=== PATIENT | female | born 1935 | race Asian ===

== ENCOUNTER 2018-05-05 10:39 | Inpatient (IN) | payer MEDICARE, OTHER ==
[2018-05-05 11:56] LABS: WHITE BLOOD COUNT 25.5 10^3/ul (4.8-10.8)
[2018-05-05 11:56] LABS: ABNORMAL IP MESSAGE 1; HEMATOCRIT 34.5 % (37.0-47.0); HEMOGLOBIN 11.5 g/dl (12.0-16.0); MEAN CORPUSCULAR HEMOGLOBIN 29.4 pg (29.0-33.0); MEAN CORPUSCULAR HGB CONC 33.3 g/dl (32.0-37.0); MEAN CORPUSCULAR VOLUME 88.2 fl (82.0-101.0); MEAN PLATELET VOLUME 8.5 fl (7.4-10.4); PLATELET COUNT 253 10^3/UL (140-415); RED BLOOD COUNT 3.91 10^6/ul (4.20-5.40); RED CELL DISTRIBUTION WIDTH 13.2 % (11.5-14.5)
[2018-05-05 11:57] LABS: ADD MAN DIFF? YES; POSITIVE DIFF @See below
[2018-05-05] MEDS: SOD CHLORIDE 0.9% 1,000 ML IV ×3 (12:21→17:23)
[2018-05-05] MEDS: CEFTRIAXONE 1 GM/50 ML (PMX) 50 ML IVPB (12:21)
[2018-05-05 12:26] LABS: ALANINE AMINOTRANSFERASE 22 IU/L (13-69); ALBUMIN 3.4 g/dl (3.3-4.9); ALBUMIN/GLOBULIN RATIO 1.09; ALKALINE PHOSPHATASE 170 IU/L (42-121); ANION GAP 9 (5-13); ASPARTATE AMINO TRANSFERASE 24 IU/L (15-46); BILIRUBIN,INDIRECT 0.1 mg/dl (0-1.1); BILIRUBIN,TOTAL 0.1 mg/dl (0.2-1.3); BLOOD UREA NITROGEN 24 mg/dl (7-20); CALCIUM 8.6 mg/dl (8.4-10.2); CARBON DIOXIDE 24 mmol/L (21-31); CHLORIDE 89 mmol/L (97-110); CREATININE 1.14 mg/dl (0.44-1.00); GLUCOSE 114 mg/dl (70-220); SODIUM 122 mmol/L (135-144); TOTAL PROTEIN 6.5 g/dl (6.1-8.1)
[2018-05-05 12:32] LABS: POTASSIUM 5.8 mmol/L (3.5-5.1)
[2018-05-05] MEDS: AZITHROMYCIN 500MG/NS (PMX) 250 ML IV (12:34)
[2018-05-05 12:38] LABS: TROPONIN-I < 0.012 ng/ml (0.000-0.120)
[2018-05-05 12:57] LABS: BAND NEUTROPHILS #M 3.3 10^3/ul (0.0-0.6); BAND NEUTROPHILS % (M) 13 % (0-4); BURR CELLS 1+ (0-0); LYMPHOCYTES #M 0.5 10^3/ul (0.8-2.9); LYMPHOCYTES % (M) 2 % (15-51); MONOCYTES % (M) 4 % (0-11); PLATELET ESTIMATE NORMAL; POIKILOCYTOSIS 1+ (0-0); POLYCHROMASIA 1+ (0-0); SEG NEUT #M 21.5 10^3/ul (1.6-7.5); SEGMENTED NEUTROPHILS (M) % 81 % (39-77); SMUDGE%M 4 % (0-0)
[2018-05-05 14:10] LABS: ADD UMIC YES; UR ASCORBIC ACID NEGATIVE (NEGATIVE); UR BACTERIA FEW /HPF (NONE SEEN); UR BILIRUBIN (Dip) NEGATIVE (NEGATIVE); UR BLOOD (Dip) NEGATIVE (NEGATIVE); UR CLARITY TURBID (CLEAR); UR COLOR AMBER (YELLOW); UR GLUCOSE (Dip) NEGATIVE (NEGATIVE); UR KETONES (Dip) NEGATIVE (NEGATIVE); UR LEUKOCYTE ESTERASE (Dip) 3+ Leu/ul (NEGATIVE); UR MUCUS FEW /HPF (NONE SEEN); UR NITRITE (Dip) NEGATIVE (NEGATIVE); UR NONSQUAMOUS EPITHELIAL CELL 15 /HPF (NONE SEEN); UR RBC 40 /HPF (0-5); UR SPECIFIC GRAVITY (Dip) 1.017 (1.003-1.030); UR SQUAMOUS EPITHELIAL CELL FEW /HPF (FEW); UR TOTAL PROTEIN (Dip) 2+ mg/dl (NEGATIVE); UR UROBILINOGEN (Dip) 1+ mg/dL (NEGATIVE); UR WBC > 182 /HPF (0-5)
[2018-05-05] MEDS ORDERED: DEXTROSE 50% 50 ML SYRINGE IV (14:30)
[2018-05-05] MEDS: DEXTROSE 50% 50 ML SYRINGE IV (14:45)
[2018-05-05] MEDS: CA CHLORIDE 10% 10 ML SYRINGE IV (14:46)
[2018-05-05] MEDS: NA BICARBONATE 8.4% 50 ML SYG IV (14:48)
[2018-05-05] MEDS: INSULIN REGULAR, HUMAN 100 UNIT/1 ML 3ML VIAL IVP (14:59)
[2018-05-05] MEDS ORDERED: ACETAMINOPHEN 325 MG TAB PO ×2 (15:00→15:30)
[2018-05-05] MEDS ORDERED: ONDANSETRON 4 MG INJ IV (15:00)
[2018-05-05] MEDS ORDERED: NA PHOSPHATE/BIPHOS 133 ML ENEMA PR (15:30)
[2018-05-05] MEDS ORDERED: BISACODYL 10 MG SUPP PR (15:30)
[2018-05-05] MEDS ORDERED: NACL 0.9% 3 ML SYG IV (15:30)
[2018-05-05] MEDS ORDERED: DOCUSATE SODIUM 100 MG CAP PO (15:30)
[2018-05-05] MEDS ORDERED: MAGNESIUM HYDROXIDE 30ML CUP PO (15:30)
[2018-05-05] MEDS ORDERED: BISACODYL (EC) 5 MG TAB PO (15:30)
[2018-05-05] MEDS ORDERED: ACETAMINOPHEN 650 MG SUPP PR (15:30)
[2018-05-05] MEDS: NA POLYST SULFON 15 GM/60 ML BTL PO ×2 (15:51→15:53)
[2018-05-05 17:28] LABS: LACTIC ACID 2.9 mmol/L (0.5-2.0)
[2018-05-05] MEDS: SOD CHLORIDE 0.9% 500 ML IV (18:10)
[2018-05-05] MEDS: DONEPEZIL 10 MG TAB PO (22:24)
[2018-05-05] MEDS: DOCUSATE SODIUM 100 MG CAP PO (22:24)
[2018-05-05] MEDS: ATORVASTATIN 20 MG TAB PO (22:24)
[2018-05-06] MEDS ORDERED: IPRATROPIUM (NEB) 0.5 MG/2.5 ML AMP (00:17)
[2018-05-06] MEDS ORDERED: ALBUTEROL 0.5% (NEB) 2.5 MG/0.5 ML AMP (00:17)
[2018-05-06] MEDS: IPRATROPIUM (NEB) 0.5 MG/2.5 ML AMP HHN ×2 (00:22→14:53)
[2018-05-06] MEDS: ALBUTEROL 0.083% (NEB) 2.5 MG/3 ML AMP HHN ×2 (00:23→14:53)
[2018-05-06] MEDS ORDERED: IPRATROPIUM (NEB) 0.5 MG/2.5 ML AMP HHN (02:00)
[2018-05-06] MEDS ORDERED: ALBUTEROL 0.083% (NEB) 2.5 MG/3 ML AMP HHN (02:00)
[2018-05-06] MEDS: SOD CHLORIDE 0.9% 1,000 ML IV ×3 (03:33→16:03)
[2018-05-06 05:21] LABS: WHITE BLOOD COUNT 35.9 10^3/ul (4.8-10.8)
[2018-05-06 05:21] LABS: ABNORMAL IP MESSAGE 1; HEMOGLOBIN 9.2 g/dl (12.0-16.0); MEAN CORPUSCULAR HEMOGLOBIN 30.2 pg (29.0-33.0); MEAN CORPUSCULAR HGB CONC 34.1 g/dl (32.0-37.0); MEAN CORPUSCULAR VOLUME 88.5 fl (82.0-101.0); MEAN PLATELET VOLUME 8.3 fl (7.4-10.4); PLATELET COUNT 216 10^3/UL (140-415); RED BLOOD COUNT 3.05 10^6/ul (4.20-5.40); RED CELL DISTRIBUTION WIDTH 13.4 % (11.5-14.5)
[2018-05-06 05:31] LABS: HEMOGLOBIN A1C 5.3 % (0-5.9)
[2018-05-06 05:43] LABS: ADD MAN DIFF? YES; POSITIVE DIFF @See below
[2018-05-06] MEDS: PANTOPRAZOLE 40 MG INJ IV (05:59)
[2018-05-06 06:31] LABS: ALANINE AMINOTRANSFERASE 24 IU/L (13-69); ALBUMIN 2.7 g/dl (3.3-4.9); ALBUMIN/GLOBULIN RATIO 0.87; ALKALINE PHOSPHATASE 135 IU/L (42-121); ANION GAP 11 (5-13); ASPARTATE AMINO TRANSFERASE 23 IU/L (15-46); BILIRUBIN,INDIRECT 0.3 mg/dl (0-1.1); BILIRUBIN,TOTAL 0.3 mg/dl (0.2-1.3); CALCIUM 8.7 mg/dl (8.4-10.2); CARBON DIOXIDE 22 mmol/L (21-31); CHLORIDE 100 mmol/L (97-110); CREATININE 1.01 mg/dl (0.44-1.00); GLUCOSE 99 mg/dl (70-220); POTASSIUM 4.2 mmol/L (3.5-5.1); SODIUM 133 mmol/L (135-144); TOTAL PROTEIN 5.8 g/dl (6.1-8.1)
[2018-05-06 06:33] LABS: BLOOD UREA NITROGEN 17 mg/dl (7-20)
[2018-05-06] MEDS ORDERED: VITAMIN A & D 5 GM OINT PACKET TOP (06:55)
[2018-05-06 07:52] LABS: ANISOCYTOSIS 1+ (0-0); BAND NEUTROPHILS #M 1.4 10^3/ul (0.0-0.6); BAND NEUTROPHILS % (M) 4 % (0-4); BURR CELLS 1+ (0-0); MONOCYTES % (M) 3 % (0-11); OVALOCYTES 1+ (0-0); PLATELET ESTIMATE NORMAL; POIKILOCYTOSIS 1+ (0-0); POLYCHROMASIA 3+ (0-0); SEG NEUT #M 33.9 10^3/ul (1.6-7.5); SEGMENTED NEUTROPHILS (M) % 93 % (39-77); SMUDGE%M 3 % (0-0)
[2018-05-06] MEDS: CEFTRIAXONE 1 GM/50 ML (PMX) 50 ML IVPB (08:51)
[2018-05-06] MEDS: CHOLECALCIFEROL 1,000 UNIT TAB PO (08:52)
[2018-05-06] MEDS: MEMANTINE 5 MG TAB PO (08:52)
[2018-05-06] MEDS: METOPROLOL (XL) 50 MG TAB PO (08:53)
[2018-05-06] MEDS: DONEPEZIL 10 MG TAB PO ×2 (08:53→21:21)
[2018-05-06] MEDS: DOCUSATE SODIUM 100 MG CAP PO ×2 (08:54→21:00)
[2018-05-06] MEDS: ATORVASTATIN 20 MG TAB PO (21:21)
[2018-05-07] MEDS: SOD CHLORIDE 0.9% 1,000 ML IV (02:14)
[2018-05-07 05:33] LABS: ADD MAN DIFF? NO
[2018-05-07 05:56] LABS: WHITE BLOOD COUNT 23.2 10^3/ul (4.8-10.8)
[2018-05-07 05:56] LABS: BASOPHILS % 0.2 % (0.0-2.0); EOSINOPHILS % 0.2 % (0.0-7.0); HEMATOCRIT 27.1 % (37.0-47.0); HEMOGLOBIN 9.2 g/dl (12.0-16.0); LYMPHOCYTES # 1.1 10^3/ul (0.8-2.9); LYMPHOCYTES % 4.9 % (15.0-51.0); MEAN CORPUSCULAR HEMOGLOBIN 30.1 pg (29.0-33.0); MEAN CORPUSCULAR HGB CONC 33.9 g/dl (32.0-37.0); MEAN CORPUSCULAR VOLUME 88.6 fl (82.0-101.0); MEAN PLATELET VOLUME 8.3 fl (7.4-10.4); MONOCYTE # 1.5 10^3/ul (0.3-0.9); MONOCYTES % 6.4 % (0.0-11.0); NEUTROPHIL # 19.8 10^3/ul (1.6-7.5); NEUTROPHILS % 85.5 % (39.0-77.0); PLATELET COUNT 210 10^3/UL (140-415); RED BLOOD COUNT 3.06 10^6/ul (4.20-5.40); RED CELL DISTRIBUTION WIDTH 13.7 % (11.5-14.5)
[2018-05-07] MEDS: PANTOPRAZOLE 40 MG INJ IV (06:00)
[2018-05-07 06:15] LABS: ALANINE AMINOTRANSFERASE 22 IU/L (13-69); ALBUMIN 2.6 g/dl (3.3-4.9); ALBUMIN/GLOBULIN RATIO 0.83; ALKALINE PHOSPHATASE 133 IU/L (42-121); ANION GAP 11 (5-13); ASPARTATE AMINO TRANSFERASE 21 IU/L (15-46); BILIRUBIN,INDIRECT 0.2 mg/dl (0-1.1); BILIRUBIN,TOTAL 0.2 mg/dl (0.2-1.3); BLOOD UREA NITROGEN 14 mg/dl (7-20); CALCIUM 8.4 mg/dl (8.4-10.2); CARBON DIOXIDE 22 mmol/L (21-31); CHLORIDE 103 mmol/L (97-110); CREATININE 0.84 mg/dl (0.44-1.00); GLUCOSE 112 mg/dl (70-220); POTASSIUM 3.9 mmol/L (3.5-5.1); SODIUM 136 mmol/L (135-144); TOTAL PROTEIN 5.7 g/dl (6.1-8.1)
[2018-05-07] MEDS: DOCUSATE SODIUM 100 MG CAP PO ×2 (08:19→20:32)
[2018-05-07] MEDS: DONEPEZIL 10 MG TAB PO ×2 (08:19→20:32)
[2018-05-07] MEDS: CHOLECALCIFEROL 1,000 UNIT TAB PO (08:19)
[2018-05-07] MEDS: MEMANTINE 5 MG TAB PO (08:20)
[2018-05-07] MEDS: CEFTRIAXONE 1 GM/50 ML (PMX) 50 ML IVPB (08:20)
[2018-05-07] MEDS: METOPROLOL (XL) 50 MG TAB PO (08:20)
[2018-05-07] MEDS: LOSARTAN 50 MG TAB PO (11:46)
[2018-05-07] MEDS: ATORVASTATIN 20 MG TAB PO (20:32)
[2018-05-08 05:15] LABS: ADD MAN DIFF? NO; BASOPHIL # 0.1 10^3/ul (0.0-0.1); BASOPHILS % 0.3 % (0.0-2.0); EOSINOPHILS # 0.2 10^3/ul (0.0-0.5); HEMATOCRIT 28.3 % (37.0-47.0); HEMOGLOBIN 9.5 g/dl (12.0-16.0); LYMPHOCYTES # 1.1 10^3/ul (0.8-2.9); LYMPHOCYTES % 6.8 % (15.0-51.0); MEAN CORPUSCULAR HEMOGLOBIN 29.9 pg (29.0-33.0); MEAN CORPUSCULAR HGB CONC 33.6 g/dl (32.0-37.0); MEAN PLATELET VOLUME 8.1 fl (7.4-10.4); MONOCYTES % 6.2 % (0.0-11.0); NEUTROPHIL # 13.9 10^3/ul (1.6-7.5); NEUTROPHILS % 83.9 % (39.0-77.0); PLATELET COUNT 207 10^3/UL (140-415); RED BLOOD COUNT 3.18 10^6/ul (4.20-5.40); RED CELL DISTRIBUTION WIDTH 13.4 % (11.5-14.5)
[2018-05-08 05:15] LABS: WHITE BLOOD COUNT 16.5 10^3/ul (4.8-10.8)
[2018-05-08] MEDS: PANTOPRAZOLE 40 MG INJ IV (05:19)
[2018-05-08 05:42] LABS: PROTIME 14.4 Sec (11.9-14.9); PT RATIO 1.1
[2018-05-08 05:43] LABS: PARTIAL THROMBOPLASTIN TIME 35.3 Sec (23.0-35.0)
[2018-05-08 05:53] LABS: ANION GAP 8 (5-13); BLOOD UREA NITROGEN 11 mg/dl (7-20); CALCIUM 8.5 mg/dl (8.4-10.2); CARBON DIOXIDE 24 mmol/L (21-31); CHLORIDE 103 mmol/L (97-110); CREATININE 0.68 mg/dl (0.44-1.00); GLUCOSE 118 mg/dl (70-220); POTASSIUM 3.7 mmol/L (3.5-5.1); SODIUM 135 mmol/L (135-144)
[2018-05-08 05:54] LABS: PHOSPHORUS 2.9 mg/dl (2.5-4.9)
[2018-05-08 05:54] LABS: MAGNESIUM 1.9 mg/dl (1.7-2.5)
[2018-05-08] MEDS: MEROPENEM 500MG/50 ML (PMX) 50 ML IVPB ×2 (10:30→21:50)
[2018-05-08] MEDS: PHENYLephrine (100 MCG/ML) 5ML SYG (11:02)
[2018-05-08] MEDS: PROPOFOL 20 ML (11:02)
[2018-05-08] MEDS: LIDOCAINE 2% (SDV) 5 ML INJ (11:03)
[2018-05-08] MEDS: hydrALAzine 20 MG INJ IV (11:55)
[2018-05-08] MEDS: FUROSEMIDE 20 MG INJ IV (13:06)
[2018-05-08] MEDS: LOSARTAN 50 MG TAB PO (14:30)
[2018-05-08] MEDS: MEMANTINE 5 MG TAB PO (14:31)
[2018-05-08] MEDS: DONEPEZIL 10 MG TAB PO ×2 (14:31→20:24)
[2018-05-08] MEDS: METOPROLOL (XL) 50 MG TAB PO (14:31)
[2018-05-08] MEDS: CHOLECALCIFEROL 1,000 UNIT TAB PO (14:31)
[2018-05-08] MEDS: DOCUSATE SODIUM 100 MG CAP PO ×2 (14:31→20:24)
[2018-05-08] MEDS: ATORVASTATIN 20 MG TAB PO (20:24)
[2018-05-08] MEDS: TAMOXIFEN 10 MG TAB PO (20:24)
[2018-05-09] MEDS: hydrALAzine 20 MG INJ IV (04:58)
[2018-05-09] MEDS: PANTOPRAZOLE 40 MG INJ IV (05:00)
[2018-05-09 05:45] LABS: ADD MAN DIFF? NO
[2018-05-09 05:52] LABS: BASOPHIL # 0.1 10^3/ul (0.0-0.1); BASOPHILS % 0.4 % (0.0-2.0); EOSINOPHILS # 0.3 10^3/ul (0.0-0.5); EOSINOPHILS % 2.2 % (0.0-7.0); HEMATOCRIT 34.3 % (37.0-47.0); HEMOGLOBIN 11.4 g/dl (12.0-16.0); LYMPHOCYTES # 1.4 10^3/ul (0.8-2.9); LYMPHOCYTES % 9.7 % (15.0-51.0); MEAN CORPUSCULAR HEMOGLOBIN 29.5 pg (29.0-33.0); MEAN CORPUSCULAR HGB CONC 33.2 g/dl (32.0-37.0); MEAN CORPUSCULAR VOLUME 88.6 fl (82.0-101.0); MEAN PLATELET VOLUME 8.3 fl (7.4-10.4); MONOCYTE # 1.1 10^3/ul (0.3-0.9); MONOCYTES % 7.7 % (0.0-11.0); NEUTROPHIL # 10.9 10^3/ul (1.6-7.5); NEUTROPHILS % 78.2 % (39.0-77.0); PLATELET COUNT 200 10^3/UL (140-415); RED BLOOD COUNT 3.87 10^6/ul (4.20-5.40); RED CELL DISTRIBUTION WIDTH 13.5 % (11.5-14.5)
[2018-05-09 06:13] LABS: MAGNESIUM 1.7 mg/dl (1.7-2.5)
[2018-05-09 06:13] LABS: PHOSPHORUS 3.5 mg/dl (2.5-4.9)
[2018-05-09 06:16] LABS: ANION GAP 10 (5-13); BLOOD UREA NITROGEN 14 mg/dl (7-20); CALCIUM 8.9 mg/dl (8.4-10.2); CARBON DIOXIDE 26 mmol/L (21-31); CHLORIDE 99 mmol/L (97-110); GLUCOSE 89 mg/dl (70-220); POTASSIUM 3.6 mmol/L (3.5-5.1); SODIUM 135 mmol/L (135-144)
[2018-05-09] MEDS: LOSARTAN 50 MG TAB PO (10:04)
[2018-05-09] MEDS: MEMANTINE 5 MG TAB PO (10:05)
[2018-05-09] MEDS: METOPROLOL (XL) 50 MG TAB PO (10:06)
[2018-05-09] MEDS: TAMOXIFEN 10 MG TAB PO (10:08)
[2018-05-09] MEDS: DONEPEZIL 10 MG TAB PO ×2 (10:09→19:57)
[2018-05-09] MEDS: DOCUSATE SODIUM 100 MG CAP PO ×2 (10:09→19:57)
[2018-05-09] MEDS: CHOLECALCIFEROL 1,000 UNIT TAB PO (10:09)
[2018-05-09] MEDS: MEROPENEM 500MG/50 ML (PMX) 50 ML IVPB (17:22)
[2018-05-09] MEDS: FUROSEMIDE 20 MG INJ IV (17:23)
[2018-05-09] MEDS: ATORVASTATIN 20 MG TAB PO (19:57)
[2018-05-10] MEDS: PANTOPRAZOLE 40 MG INJ IV (05:58)
[2018-05-10 06:15] LABS: ADD MAN DIFF? NO
[2018-05-10 06:19] LABS: WHITE BLOOD COUNT 12.9 10^3/ul (4.8-10.8)
[2018-05-10 06:19] LABS: BASOPHIL # 0.1 10^3/ul (0.0-0.1); BASOPHILS % 0.4 % (0.0-2.0); EOSINOPHILS # 0.3 10^3/ul (0.0-0.5); EOSINOPHILS % 2.5 % (0.0-7.0); HEMATOCRIT 32.3 % (37.0-47.0); HEMOGLOBIN 10.6 g/dl (12.0-16.0); LYMPHOCYTES # 1.6 10^3/ul (0.8-2.9); LYMPHOCYTES % 12.5 % (15.0-51.0); MEAN CORPUSCULAR HEMOGLOBIN 28.9 pg (29.0-33.0); MEAN CORPUSCULAR HGB CONC 32.8 g/dl (32.0-37.0); MEAN PLATELET VOLUME 8.3 fl (7.4-10.4); MONOCYTE # 1.1 10^3/ul (0.3-0.9); MONOCYTES % 8.6 % (0.0-11.0); NEUTROPHIL # 9.6 10^3/ul (1.6-7.5); NEUTROPHILS % 74.6 % (39.0-77.0); PLATELET COUNT 207 10^3/UL (140-415); RED BLOOD COUNT 3.67 10^6/ul (4.20-5.40); RED CELL DISTRIBUTION WIDTH 13.5 % (11.5-14.5)
[2018-05-10 06:45] LABS: ALANINE AMINOTRANSFERASE 39 IU/L (13-69); ALKALINE PHOSPHATASE 115 IU/L (42-121); ASPARTATE AMINO TRANSFERASE 33 IU/L (15-46); BILIRUBIN,INDIRECT 0.3 mg/dl (0-1.1); BILIRUBIN,TOTAL 0.3 mg/dl (0.2-1.3); TOTAL PROTEIN 6.2 g/dl (6.1-8.1)
[2018-05-10 06:46] LABS: PHOSPHORUS 3.3 mg/dl (2.5-4.9)
[2018-05-10 06:46] LABS: MAGNESIUM 1.6 mg/dl (1.7-2.5)
[2018-05-10 07:02] LABS: ANION GAP 7 (5-13); BLOOD UREA NITROGEN 19 mg/dl (7-20); CALCIUM 8.7 mg/dl (8.4-10.2); CARBON DIOXIDE 27 mmol/L (21-31); CHLORIDE 97 mmol/L (97-110); CREATININE 0.77 mg/dl (0.44-1.00); GLUCOSE 107 mg/dl (70-220); POTASSIUM 3.4 mmol/L (3.5-5.1); SODIUM 131 mmol/L (135-144)
[2018-05-10] MEDS: MEROPENEM 500MG/50 ML (PMX) 50 ML IVPB ×4 (09:46→22:19)
[2018-05-10] MEDS: TAMOXIFEN 10 MG TAB PO (09:48)
[2018-05-10] MEDS: LOSARTAN 50 MG TAB PO (09:54)
[2018-05-10] MEDS: POTASSIUM CHLORIDE (SR) 20 MEQ TAB PO (09:54)
[2018-05-10] MEDS: CHOLECALCIFEROL 1,000 UNIT TAB PO (09:54)
[2018-05-10] MEDS: DOCUSATE SODIUM 100 MG CAP PO ×2 (09:54→20:33)
[2018-05-10] MEDS: MEMANTINE 5 MG TAB PO (10:43)
[2018-05-10] MEDS: DONEPEZIL 10 MG TAB PO ×2 (10:43→20:35)
[2018-05-10] MEDS: METOPROLOL (XL) 50 MG TAB PO (10:43)
[2018-05-10] MEDS: MAGNESIUM SULFATE 2 GM/50 ML 50 ML IVPB (12:34)
[2018-05-10] MEDS: ATORVASTATIN 20 MG TAB PO (20:33)
[2018-05-11] MEDS: DONEPEZIL 10 MG TAB PO ×3 (00:59→20:12)
[2018-05-11] MEDS: PANTOPRAZOLE 40 MG INJ IV (05:06)
[2018-05-11 06:31] LABS: ADD MAN DIFF? NO
[2018-05-11 06:36] LABS: WHITE BLOOD COUNT 13.3 10^3/ul (4.8-10.8)
[2018-05-11 06:36] LABS: BASOPHIL # 0.1 10^3/ul (0.0-0.1); BASOPHILS % 0.4 % (0.0-2.0); EOSINOPHILS # 0.4 10^3/ul (0.0-0.5); EOSINOPHILS % 2.8 % (0.0-7.0); HEMATOCRIT 31.1 % (37.0-47.0); HEMOGLOBIN 10.4 g/dl (12.0-16.0); LYMPHOCYTES # 1.5 10^3/ul (0.8-2.9); LYMPHOCYTES % 11.5 % (15.0-51.0); MEAN CORPUSCULAR HEMOGLOBIN 29.7 pg (29.0-33.0); MEAN CORPUSCULAR HGB CONC 33.4 g/dl (32.0-37.0); MEAN CORPUSCULAR VOLUME 88.9 fl (82.0-101.0); MEAN PLATELET VOLUME 8.2 fl (7.4-10.4); MONOCYTES % 7.4 % (0.0-11.0); NEUTROPHIL # 10.1 10^3/ul (1.6-7.5); NEUTROPHILS % 76.5 % (39.0-77.0); PLATELET COUNT 226 10^3/UL (140-415); RED CELL DISTRIBUTION WIDTH 13.4 % (11.5-14.5)
[2018-05-11 07:16] LABS: MAGNESIUM 2.1 mg/dl (1.7-2.5)
[2018-05-11 07:16] LABS: PHOSPHORUS 2.7 mg/dl (2.5-4.9)
[2018-05-11 07:21] LABS: ANION GAP 8 (5-13); BLOOD UREA NITROGEN 18 mg/dl (7-20); CALCIUM 8.6 mg/dl (8.4-10.2); CARBON DIOXIDE 28 mmol/L (21-31); CHLORIDE 96 mmol/L (97-110); CREATININE 0.69 mg/dl (0.44-1.00); GLUCOSE 106 mg/dl (70-220); SODIUM 132 mmol/L (135-144)
[2018-05-11] MEDS: CHOLECALCIFEROL 1,000 UNIT TAB PO (09:49)
[2018-05-11] MEDS: DOCUSATE SODIUM 100 MG CAP PO ×2 (09:49→20:12)
[2018-05-11] MEDS: MEMANTINE 5 MG TAB PO (09:49)
[2018-05-11] MEDS: METOPROLOL (XL) 50 MG TAB PO (09:53)
[2018-05-11] MEDS: TAMOXIFEN 10 MG TAB PO (09:55)
[2018-05-11] MEDS: MEROPENEM 500MG/50 ML (PMX) 50 ML IVPB ×2 (09:56→20:12)
[2018-05-11] MEDS: LOSARTAN 50 MG TAB PO (09:56)
[2018-05-11] MEDS: ATORVASTATIN 20 MG TAB PO (20:12)
[2018-05-12] MEDS: hydrALAzine 20 MG INJ IV (02:02)
[2018-05-12] MEDS: PANTOPRAZOLE 40 MG INJ IV (05:43)
[2018-05-12 08:53] LABS: OCCULT BLOOD STOOL NEGATIVE (NEGATIVE)
[2018-05-12] MEDS: MEROPENEM 500MG/50 ML (PMX) 50 ML IVPB (09:00)
[2018-05-12 09:03] LABS: CARCINOEMBRYONIC ANTIGEN 5.9 ng/ml (0.0-5.0)
[2018-05-12] MEDS: DOCUSATE SODIUM 100 MG CAP PO (09:05)
[2018-05-12] MEDS: LOSARTAN 50 MG TAB PO (09:05)
[2018-05-12] MEDS: DONEPEZIL 10 MG TAB PO (09:05)
[2018-05-12] MEDS: MEMANTINE 5 MG TAB PO (09:05)
[2018-05-12] MEDS: METOPROLOL (XL) 50 MG TAB PO (09:06)
[2018-05-12] MEDS: CHOLECALCIFEROL 1,000 UNIT TAB PO (09:06)
[2018-05-12] MEDS: TAMOXIFEN 10 MG TAB PO (09:07)
== END 2018-05-12 15:00 | disposition home health service (06) | DRG 872 ==
LOC: E/R 10:39 → 2NE 05-09 22:26 → 6WM 17:00
PROC: 0DB68ZX Excision of Stomach, Via Natural or Artificial Opening Endoscopic, Diagnostic (ICD-10-PCS; principal; 2018-05-08 09:30)
DX: A41.9 Sepsis, unspecified organism (principal); E87.1 Hypo-osmolality and hyponatremia; N17.9 Acute kidney failure, unspecified; M48.54XA Collapsed vertebra, not elsewhere classified, thoracic region, initial encounter for fracture; N30.01 Acute cystitis with hematuria; K92.1 Melena; K92.0 Hematemesis; R65.20 Severe sepsis without septic shock; E87.5 Hyperkalemia; K29.50 Unspecified chronic gastritis without bleeding; K20.0 Eosinophilic esophagitis; B96.20 Unspecified Escherichia coli [E. coli] as the cause of diseases classified elsewhere; B96.1 Klebsiella pneumoniae [K. pneumoniae] as the cause of diseases classified elsewhere; Z16.12 Extended spectrum beta lactamase (ESBL) resistance; Z85.3 Personal history of malignant neoplasm of breast; D64.9 Anemia, unspecified
CPT/HCPCS: 36415; 71045; 76705; 76775; 80048; 80053; 80076; 81001; 82270; 82378; 82962; 83036; 83605; 83735; 84100; 84484; 85025; 85610; 85730; 87040; 87086; 88305; 88312; 94640; 94664; 96374; 96375; 97161; 99285-25

== ENCOUNTER 2018-06-23 08:14 | Inpatient (IN) | payer MEDICARE, OTHER ==
[2018-06-23 09:21] LABS: ADD MAN DIFF? NO
[2018-06-23 09:22] LABS: WHITE BLOOD COUNT 34.5 10^3/ul (4.8-10.8)
[2018-06-23 09:22] LABS: ABNORMAL IP MESSAGE 1; BASOPHIL # 0.1 10^3/ul (0.0-0.1); BASOPHILS % 0.3 % (0.0-2.0); EOSINOPHILS % 0.1 % (0.0-7.0); HEMATOCRIT 29.7 % (37.0-47.0); HEMOGLOBIN 9.8 g/dl (12.0-16.0); LYMPHOCYTES # 0.8 10^3/ul (0.8-2.9); LYMPHOCYTES % 2.4 % (15.0-51.0); MEAN CORPUSCULAR HEMOGLOBIN 28.8 pg (29.0-33.0); MEAN CORPUSCULAR VOLUME 87.4 fl (82.0-101.0); MEAN PLATELET VOLUME 8.9 fl (7.4-10.4); MONOCYTE # 1.8 10^3/ul (0.3-0.9); MONOCYTES % 5.1 % (0.0-11.0); NEUTROPHIL # 30.5 10^3/ul (1.6-7.5); NEUTROPHILS % 88.5 % (39.0-77.0); PLATELET COUNT 381 10^3/UL (140-415); RED CELL DISTRIBUTION WIDTH 14.8 % (11.5-14.5)
[2018-06-23 09:27] LABS: POSITIVE DIFF @See below
[2018-06-23] MEDS: SODIUM CHLORIDE 0.9% 1L BAG IV* (09:33)
[2018-06-23 09:40] LABS: ALANINE AMINOTRANSFERASE 19 IU/L (13-69); ALBUMIN 3.5 g/dl (3.3-4.9); ALBUMIN/GLOBULIN RATIO 0.85; ALKALINE PHOSPHATASE 248 IU/L (42-121); AMYLASE 151 U/L (11-123); ANION GAP 11 (5-13); ASPARTATE AMINO TRANSFERASE 39 IU/L (15-46); BLOOD UREA NITROGEN 61 mg/dl (7-20); CALCIUM 8.7 mg/dl (8.4-10.2); CARBON DIOXIDE 21 mmol/L (21-31); CHLORIDE 88 mmol/L (97-110); CREATININE 2.57 mg/dl (0.44-1.00); GLUCOSE 133 mg/dl (70-220); LIPASE 229 U/L (23-300); SODIUM 120 mmol/L (135-144); TOTAL PROTEIN 7.6 g/dl (6.1-8.1)
[2018-06-23 09:42] LABS: INR 1.02; PROTIME 13.5 Sec (11.9-14.9); PT RATIO 1.1
[2018-06-23 09:43] LABS: PARTIAL THROMBOPLASTIN TIME 31.5 Sec (23.0-35.0)
[2018-06-23] MEDS: CEFTRIAXONE 1 GM/50 ML (PMX) 50 ML IVPB ×2 (09:49→12:30)
[2018-06-23 09:50] LABS: ADD UMIC YES; UR ASCORBIC ACID 40 mg/dL (NEGATIVE); UR BACTERIA MODERATE /HPF (NONE SEEN); UR BILIRUBIN (Dip) NEGATIVE (NEGATIVE); UR BLOOD (Dip) 2+ mg/dL (NEGATIVE); UR CLARITY CLOUDY (CLEAR); UR COLOR YELLOW (YELLOW); UR GLUCOSE (Dip) NEGATIVE (NEGATIVE); UR KETONES (Dip) NEGATIVE (NEGATIVE); UR LEUKOCYTE ESTERASE (Dip) 3+ Leu/ul (NEGATIVE); UR MUCUS FEW /HPF (NONE SEEN); UR NITRITE (Dip) NEGATIVE (NEGATIVE); UR RBC 12 /HPF (0-5); UR SPECIFIC GRAVITY (Dip) 1.014 (1.003-1.030); UR TOTAL PROTEIN (Dip) 1+ mg/dl (NEGATIVE); UR UROBILINOGEN (Dip) NEGATIVE (NEGATIVE); UR WBC > 182 /HPF (0-5)
[2018-06-23 09:52] LABS: TROPONIN-I < 0.012 ng/ml (0.000-0.120)
[2018-06-23] MEDS ORDERED: ALBUTEROL 0.5% (NEB) 2.5 MG/0.5 ML AMP INH (09:55)
[2018-06-23] MEDS: IPRATROPIUM (NEB) 0.5 MG/2.5 ML AMP NEB (09:59)
[2018-06-23] MEDS: ALBUTEROL 0.083% (NEB) 2.5 MG/3 ML AMP NEB (09:59)
[2018-06-23] MEDS: CA CHLORIDE 10% 10 ML SYRINGE IV (10:46)
[2018-06-23] MEDS: NA BICARBONATE 8.4% 50 ML SYG IV (10:46)
[2018-06-23] MEDS: FUROSEMIDE 40 MG INJ IV (10:46)
[2018-06-23] MEDS: NA POLYST SULFON 15 GM/60 ML BTL PO ×2 (10:46→14:07)
[2018-06-23 10:59] LABS: POTASSIUM 6.3 mmol/L (3.5-5.1)
[2018-06-23] MEDS ORDERED: ONDANSETRON 4 MG INJ IV (11:00)
[2018-06-23] MEDS ORDERED: ACETAMINOPHEN 325 MG TAB PO (11:00)
[2018-06-23 11:10] LABS: B-TYPE NATRIURETIC PEPTIDE 5860 PG/ML (0-450)
[2018-06-23] MEDS ORDERED: NA POLYST SULFON 15 GM/60 ML BTL PO (12:30)
[2018-06-23] MEDS ORDERED: METOPROLOL 5 MG INJ IV ×3 (12:30→17:00)
[2018-06-23] MEDS ORDERED: NA POLYST SULFON 15 GM/60 ML BTL PR (12:30)
[2018-06-23] MEDS: DEXTROSE 5%-0.45% NACL 1,000 ML IV (13:30)
[2018-06-23] MEDS: DIGOXIN 500 MCG INJ IV (13:30)
[2018-06-23] MEDS: NA POLYST SULFON 30 GM/120 ML ENEMA PR (13:42)
[2018-06-23] MEDS ORDERED: DILTIAZEM 25 MG INJ IV (15:00)
[2018-06-23 15:01] LABS: LACTIC ACID 1.9 mmol/L (0.5-2.0)
[2018-06-23 15:39] LABS: THYROID STIMULATING HORMONE 0.758 MIU/L (0.465-4.680)
[2018-06-23 20:16] LABS: POTASSIUM 5.8 mmol/L (3.5-5.1)
[2018-06-23 20:26] LABS: CREATINE KINASE < 20 IU/L (23-200)
[2018-06-23 20:33] LABS: CK-MB 0.87 ng/ml (0.0-2.4); TROPONIN-I < 0.012 ng/ml (0.000-0.120)
[2018-06-23] MEDS: ATORVASTATIN 20 MG TAB PO (20:46)
[2018-06-23] MEDS: METOPROLOL 25 MG TAB PO (20:47)
[2018-06-23] MEDS: HEPARIN 5,000 UNIT/1 ML VIAL SC (20:58)
[2018-06-24] MEDS: PANTOPRAZOLE 40 MG INJ IV (05:30)
[2018-06-24 06:11] LABS: ADD MAN DIFF? NO
[2018-06-24 06:21] LABS: WHITE BLOOD COUNT 28.3 10^3/ul (4.8-10.8)
[2018-06-24 06:21] LABS: ABNORMAL IP MESSAGE 1; BASOPHIL # 0.1 10^3/ul (0.0-0.1); BASOPHILS % 0.2 % (0.0-2.0); EOSINOPHILS # 0.2 10^3/ul (0.0-0.5); EOSINOPHILS % 0.5 % (0.0-7.0); HEMATOCRIT 24.6 % (37.0-47.0); HEMOGLOBIN 8.1 g/dl (12.0-16.0); LYMPHOCYTES # 1.1 10^3/ul (0.8-2.9); LYMPHOCYTES % 3.8 % (15.0-51.0); MEAN CORPUSCULAR HGB CONC 32.9 g/dl (32.0-37.0); MEAN CORPUSCULAR VOLUME 88.2 fl (82.0-101.0); MEAN PLATELET VOLUME 8.6 fl (7.4-10.4); MONOCYTE # 2.1 10^3/ul (0.3-0.9); MONOCYTES % 7.4 % (0.0-11.0); NEUTROPHIL # 24.2 10^3/ul (1.6-7.5); NEUTROPHILS % 85.4 % (39.0-77.0); PLATELET COUNT 347 10^3/UL (140-415); RED BLOOD COUNT 2.79 10^6/ul (4.20-5.40); RED CELL DISTRIBUTION WIDTH 14.9 % (11.5-14.5)
[2018-06-24 06:32] LABS: POSITIVE DIFF @See below
[2018-06-24 07:05] LABS: ANION GAP 13 (5-13); BLOOD UREA NITROGEN 57 mg/dl (7-20); CALCIUM 8.4 mg/dl (8.4-10.2); CARBON DIOXIDE 23 mmol/L (21-31); CHLORIDE 92 mmol/L (97-110); CREATININE 2.49 mg/dl (0.44-1.00); GLUCOSE 84 mg/dl (70-220); POTASSIUM 5.8 mmol/L (3.5-5.1); SODIUM 128 mmol/L (135-144)
[2018-06-24 07:07] LABS: CK-MB 0.37 ng/ml (0.0-2.4); TROPONIN-I 0.016 ng/ml (0.000-0.120)
[2018-06-24 07:25] LABS: CREATINE KINASE < 20 IU/L (23-200)
[2018-06-24] MEDS: MEMANTINE 5 MG TAB PO (08:25)
[2018-06-24] MEDS: DONEPEZIL 10 MG TAB PO (08:25)
[2018-06-24] MEDS: METOPROLOL 25 MG TAB PO (08:26)
[2018-06-24] MEDS: CHOLECALCIFEROL 1,000 UNIT TAB PO (08:26)
[2018-06-24] MEDS: HEPARIN 5,000 UNIT/1 ML VIAL SC ×2 (08:39→20:45)
[2018-06-24] MEDS ORDERED: METOPROLOL (XL) 50 MG TAB PO (09:00)
[2018-06-24] MEDS: CEFTRIAXONE 1 GM/50 ML (PMX) 50 ML IVPB (09:26)
[2018-06-24] MEDS: NA POLYST SULFON 15 GM/60 ML BTL PO ×2 (11:04→15:34)
[2018-06-24] MEDS: DEXTROSE 5%-0.45% NACL 1,000 ML IV (13:02)
[2018-06-24] MEDS: ATORVASTATIN 20 MG TAB PO (20:37)
[2018-06-24] MEDS: METOPROLOL 50 MG TAB PO (20:39)
[2018-06-25 05:35] LABS: ADD MAN DIFF? NO
[2018-06-25 05:42] LABS: ABNORMAL IP MESSAGE 1; BASOPHIL # 0.1 10^3/ul (0.0-0.1); BASOPHILS % 0.3 % (0.0-2.0); EOSINOPHILS # 0.3 10^3/ul (0.0-0.5); EOSINOPHILS % 1.7 % (0.0-7.0); HEMATOCRIT 27.1 % (37.0-47.0); HEMOGLOBIN 8.9 g/dl (12.0-16.0); LYMPHOCYTES # 1.3 10^3/ul (0.8-2.9); LYMPHOCYTES % 6.6 % (15.0-51.0); MEAN CORPUSCULAR HEMOGLOBIN 28.7 pg (29.0-33.0); MEAN CORPUSCULAR HGB CONC 32.8 g/dl (32.0-37.0); MEAN CORPUSCULAR VOLUME 87.4 fl (82.0-101.0); MEAN PLATELET VOLUME 8.1 fl (7.4-10.4); MONOCYTE # 1.6 10^3/ul (0.3-0.9); NEUTROPHIL # 16.5 10^3/ul (1.6-7.5); NEUTROPHILS % 80.6 % (39.0-77.0); PLATELET COUNT 358 10^3/UL (140-415)
[2018-06-25 05:42] LABS: WHITE BLOOD COUNT 20.4 10^3/ul (4.8-10.8)
[2018-06-25] MEDS: PANTOPRAZOLE 40 MG INJ IV (05:51)
[2018-06-25 05:55] LABS: POSITIVE DIFF @See below
[2018-06-25 06:13] LABS: ALANINE AMINOTRANSFERASE 28 IU/L (13-69); ALBUMIN 2.8 g/dl (3.3-4.9); ALKALINE PHOSPHATASE 178 IU/L (42-121); ANION GAP 11 (5-13); ASPARTATE AMINO TRANSFERASE 38 IU/L (15-46); BLOOD UREA NITROGEN 47 mg/dl (7-20); CALCIUM 8.3 mg/dl (8.4-10.2); CARBON DIOXIDE 24 mmol/L (21-31); CHLORIDE 97 mmol/L (97-110); CREATININE 2.27 mg/dl (0.44-1.00); GLUCOSE 129 mg/dl (70-220); POTASSIUM 4.1 mmol/L (3.5-5.1); SODIUM 132 mmol/L (135-144); TOTAL PROTEIN 6.3 g/dl (6.1-8.1)
[2018-06-25] MEDS: METOPROLOL 50 MG TAB PO ×2 (08:41→21:48)
[2018-06-25] MEDS: CHOLECALCIFEROL 1,000 UNIT TAB PO (08:43)
[2018-06-25] MEDS: MEMANTINE 5 MG TAB PO (08:44)
[2018-06-25] MEDS: DONEPEZIL 10 MG TAB PO (08:44)
[2018-06-25] MEDS: HEPARIN 5,000 UNIT/1 ML VIAL SC ×2 (08:53→22:09)
[2018-06-25] MEDS: CEFTRIAXONE 1 GM/50 ML (PMX) 50 ML IVPB (11:02)
[2018-06-25] MEDS: ALBUTEROL/IPRATROPIUM (NEB) 3 ML AMP HHN ×3 (12:20→19:35)
[2018-06-25] MEDS: DEXTROSE 5%-0.45% NACL 1,000 ML IV (13:43)
[2018-06-25] MEDS: ATORVASTATIN 20 MG TAB PO (21:48)
[2018-06-26] MEDS ORDERED: LEVALBUTEROL (NEB) 0.31 MG/3 ML AMP (01:25)
[2018-06-26] MEDS: ALBUTEROL/IPRATROPIUM (NEB) 3 ML AMP HHN ×4 (01:30→20:21)
[2018-06-26 05:38] LABS: ADD MAN DIFF? NO
[2018-06-26 05:39] LABS: WHITE BLOOD COUNT 18.4 10^3/ul (4.8-10.8)
[2018-06-26 05:39] LABS: ABNORMAL IP MESSAGE 1; BASOPHIL # 0.1 10^3/ul (0.0-0.1); BASOPHILS % 0.3 % (0.0-2.0); EOSINOPHILS # 0.3 10^3/ul (0.0-0.5); EOSINOPHILS % 1.6 % (0.0-7.0); HEMATOCRIT 28.1 % (37.0-47.0); HEMOGLOBIN 9.2 g/dl (12.0-16.0); LYMPHOCYTES # 1.3 10^3/ul (0.8-2.9); LYMPHOCYTES % 7.2 % (15.0-51.0); MEAN CORPUSCULAR HEMOGLOBIN 28.8 pg (29.0-33.0); MEAN CORPUSCULAR HGB CONC 32.7 g/dl (32.0-37.0); MEAN CORPUSCULAR VOLUME 88.1 fl (82.0-101.0); MEAN PLATELET VOLUME 8.1 fl (7.4-10.4); MONOCYTE # 1.6 10^3/ul (0.3-0.9); MONOCYTES % 8.4 % (0.0-11.0); NEUTROPHIL # 14.6 10^3/ul (1.6-7.5); NEUTROPHILS % 79.6 % (39.0-77.0); PLATELET COUNT 342 10^3/UL (140-415); RED BLOOD COUNT 3.19 10^6/ul (4.20-5.40)
[2018-06-26 05:40] LABS: POSITIVE DIFF @See below
[2018-06-26] MEDS: PANTOPRAZOLE (EC) 40 MG TAB PO (05:44)
[2018-06-26 06:08] LABS: ANION GAP 8 (5-13); BLOOD UREA NITROGEN 36 mg/dl (7-20); CALCIUM 8.4 mg/dl (8.4-10.2); CARBON DIOXIDE 24 mmol/L (21-31); CHLORIDE 100 mmol/L (97-110); CREATININE 1.81 mg/dl (0.44-1.00); GLUCOSE 127 mg/dl (70-220); POTASSIUM 3.9 mmol/L (3.5-5.1); SODIUM 132 mmol/L (135-144)
[2018-06-26 06:10] LABS: MAGNESIUM 1.9 mg/dl (1.7-2.5)
[2018-06-26 06:10] LABS: PHOSPHORUS 4.2 mg/dl (2.5-4.9)
[2018-06-26] MEDS: MEMANTINE 5 MG TAB PO (09:17)
[2018-06-26] MEDS: DONEPEZIL 10 MG TAB PO (09:17)
[2018-06-26] MEDS: CHOLECALCIFEROL 1,000 UNIT TAB PO (09:17)
[2018-06-26] MEDS: METOPROLOL 50 MG TAB PO ×2 (09:17→23:02)
[2018-06-26] MEDS: CEFTRIAXONE 1 GM/50 ML (PMX) 50 ML IVPB (09:18)
[2018-06-26] MEDS: HEPARIN 5,000 UNIT/1 ML VIAL SC ×2 (09:37→23:15)
[2018-06-26] MEDS ORDERED: ACETAMINOPHEN 325 MG TAB PO (11:30)
[2018-06-26] MEDS: CEFEPIME 1GM/50 ML (PMX) 50 ML IVPB (11:42)
[2018-06-26] MEDS: DEXTROSE 5%-0.45% NACL 1,000 ML IV (11:42)
[2018-06-26] MEDS: ATORVASTATIN 20 MG TAB PO (23:02)
[2018-06-27] MEDS: ALBUTEROL/IPRATROPIUM (NEB) 3 ML AMP HHN ×4 (01:58→20:04)
[2018-06-27 05:29] LABS: ADD MAN DIFF? NO
[2018-06-27 05:36] LABS: ABNORMAL IP MESSAGE 1; BASOPHIL # 0.1 10^3/ul (0.0-0.1); BASOPHILS % 0.3 % (0.0-2.0); EOSINOPHILS # 0.3 10^3/ul (0.0-0.5); EOSINOPHILS % 1.8 % (0.0-7.0); HEMATOCRIT 25.9 % (37.0-47.0); HEMOGLOBIN 8.4 g/dl (12.0-16.0); LYMPHOCYTES # 1.8 10^3/ul (0.8-2.9); LYMPHOCYTES % 9.7 % (15.0-51.0); MEAN CORPUSCULAR HEMOGLOBIN 28.4 pg (29.0-33.0); MEAN CORPUSCULAR HGB CONC 32.4 g/dl (32.0-37.0); MEAN CORPUSCULAR VOLUME 87.5 fl (82.0-101.0); MEAN PLATELET VOLUME 9.3 fl (7.4-10.4); MONOCYTE # 1.5 10^3/ul (0.3-0.9); MONOCYTES % 8.4 % (0.0-11.0); NEUTROPHILS % 77.6 % (39.0-77.0); RED BLOOD COUNT 2.96 10^6/ul (4.20-5.40); RED CELL DISTRIBUTION WIDTH 15.3 % (11.5-14.5)
[2018-06-27 05:56] LABS: PLATELET COUNT 203 10^3/UL (140-415); POSITIVE DIFF @See below
[2018-06-27 06:08] LABS: PHOSPHORUS 3.3 mg/dl (2.5-4.9)
[2018-06-27 06:08] LABS: MAGNESIUM 1.8 mg/dl (1.7-2.5)
[2018-06-27 06:10] LABS: ANION GAP 6 (5-13); BLOOD UREA NITROGEN 29 mg/dl (7-20); CALCIUM 8.3 mg/dl (8.4-10.2); CARBON DIOXIDE 23 mmol/L (21-31); CHLORIDE 102 mmol/L (97-110); CREATININE 1.52 mg/dl (0.44-1.00); GLUCOSE 116 mg/dl (70-220); SODIUM 131 mmol/L (135-144)
[2018-06-27] MEDS: PANTOPRAZOLE (EC) 40 MG TAB PO (06:28)
[2018-06-27] MEDS: METOPROLOL 50 MG TAB PO ×2 (08:14→20:36)
[2018-06-27] MEDS: DONEPEZIL 10 MG TAB PO (08:14)
[2018-06-27] MEDS: CHOLECALCIFEROL 1,000 UNIT TAB PO (08:14)
[2018-06-27] MEDS: MEMANTINE 5 MG TAB PO (08:14)
[2018-06-27] MEDS: HEPARIN 5,000 UNIT/1 ML VIAL SC ×2 (08:24→20:37)
[2018-06-27] MEDS: CEFEPIME 1GM/50 ML (PMX) 50 ML IVPB (11:04)
[2018-06-27] MEDS: DEXTROSE 5%-0.45% NACL 1,000 ML IV (11:50)
[2018-06-27] MEDS: ATORVASTATIN 20 MG TAB PO (20:35)
[2018-06-28] MEDS: ALBUTEROL/IPRATROPIUM (NEB) 3 ML AMP HHN ×4 (01:10→19:39)
[2018-06-28] MEDS: PANTOPRAZOLE (EC) 40 MG TAB PO (06:06)
[2018-06-28 08:26] LABS: ADD MAN DIFF? NO
[2018-06-28 08:41] LABS: WHITE BLOOD COUNT 14.6 10^3/ul (4.8-10.8)
[2018-06-28 08:41] LABS: BASOPHIL # 0.1 10^3/ul (0.0-0.1); BASOPHILS % 0.3 % (0.0-2.0); EOSINOPHILS # 0.4 10^3/ul (0.0-0.5); EOSINOPHILS % 2.6 % (0.0-7.0); LYMPHOCYTES # 1.3 10^3/ul (0.8-2.9); MEAN CORPUSCULAR HEMOGLOBIN 28.6 pg (29.0-33.0); MEAN CORPUSCULAR HGB CONC 32.1 g/dl (32.0-37.0); MEAN CORPUSCULAR VOLUME 88.9 fl (82.0-101.0); MEAN PLATELET VOLUME 8.1 fl (7.4-10.4); MONOCYTE # 1.1 10^3/ul (0.3-0.9); MONOCYTES % 7.7 % (0.0-11.0); NEUTROPHIL # 11.5 10^3/ul (1.6-7.5); PLATELET COUNT 369 10^3/UL (140-415); RED BLOOD COUNT 3.15 10^6/ul (4.20-5.40)
[2018-06-28 09:01] LABS: PHOSPHORUS 3.4 mg/dl (2.5-4.9)
[2018-06-28 09:01] LABS: MAGNESIUM 1.7 mg/dl (1.7-2.5)
[2018-06-28 09:15] LABS: ANION GAP 8 (5-13); BLOOD UREA NITROGEN 24 mg/dl (7-20); CALCIUM 8.9 mg/dl (8.4-10.2); CARBON DIOXIDE 25 mmol/L (21-31); CHLORIDE 101 mmol/L (97-110); CREATININE 1.25 mg/dl (0.44-1.00); GLUCOSE 113 mg/dl (70-220); POTASSIUM 4.2 mmol/L (3.5-5.1); SODIUM 134 mmol/L (135-144)
[2018-06-28] MEDS: DONEPEZIL 10 MG TAB PO (10:47)
[2018-06-28] MEDS: CHOLECALCIFEROL 1,000 UNIT TAB PO (10:47)
[2018-06-28] MEDS: METOPROLOL 50 MG TAB PO ×2 (10:48→20:30)
[2018-06-28] MEDS: HEPARIN 5,000 UNIT/1 ML VIAL SC ×2 (10:53→20:31)
[2018-06-28] MEDS: DEXTROSE 5%-0.45% NACL 1,000 ML IV ×2 (12:30→20:53)
[2018-06-28] MEDS: CEFEPIME 1GM/50 ML (PMX) 50 ML IVPB (12:38)
[2018-06-28] MEDS: MEMANTINE 5 MG TAB PO (12:38)
[2018-06-28] MEDS: ATORVASTATIN 20 MG TAB PO (20:29)
[2018-06-29] MEDS: ALBUTEROL/IPRATROPIUM (NEB) 3 ML AMP HHN ×4 (02:07→19:43)
[2018-06-29] MEDS: PANTOPRAZOLE (EC) 40 MG TAB PO (05:39)
[2018-06-29] MEDS: METOPROLOL 50 MG TAB PO (09:08)
[2018-06-29] MEDS: MEMANTINE 5 MG TAB PO (09:08)
[2018-06-29] MEDS: CHOLECALCIFEROL 1,000 UNIT TAB PO (09:08)
[2018-06-29] MEDS: DONEPEZIL 10 MG TAB PO (09:08)
[2018-06-29] MEDS: HEPARIN 5,000 UNIT/1 ML VIAL SC (09:09)
[2018-06-29] MEDS: TAMOXIFEN 10 MG TAB PO (10:50)
[2018-06-29] MEDS: CEFEPIME 1GM/50 ML (PMX) 50 ML IVPB (11:52)
== END 2018-06-29 19:10 | DRG 871 ==
LOC: 5EC 06-27 18:43 → E/R 08:14 → PP2 06-28 11:20 → 6WM 10:38
DX: A41.51 Sepsis due to Escherichia coli [E. coli] (principal); J69.0 Pneumonitis due to inhalation of food and vomit; I50.33 Acute on chronic diastolic (congestive) heart failure; N17.9 Acute kidney failure, unspecified; E87.1 Hypo-osmolality and hyponatremia; N12 Tubulo-interstitial nephritis, not specified as acute or chronic; G93.40 Encephalopathy, unspecified; E87.5 Hyperkalemia; I48.91 Unspecified atrial fibrillation; D64.9 Anemia, unspecified; I11.0 Hypertensive heart disease with heart failure; E78.5 Hyperlipidemia, unspecified; F03.90 Unspecified dementia, unspecified severity, without behavioral disturbance, psychotic disturbance, mood disturbance, and anxiety; R65.20 Severe sepsis without septic shock; C50.911 Malignant neoplasm of unspecified site of right female breast; M81.0 Age-related osteoporosis without current pathological fracture; Z74.01 Bed confinement status
CPT/HCPCS: 36415; 70450; 71045; 76705; 76775; 80048; 80053; 81001; 82150; 82550; 82553; 83605; 83690; 83735; 83880; 84100; 84132; 84443; 84484; 85025; 85610; 85730; 87040; 87086; 92526; 92610; 93005; 93306; 94640; 94664; 96374; 99291-25